=== PATIENT | female | born 1965 | race Caucasian/White ===

== ENCOUNTER 2023-10-10 10:11 | Emergency (ER) | payer OTHER ==
[~2023-10-10] VITALS: Ht 180.3 cm; Wt 115.7 kg
[2023-10-10] MEDS ORDERED: NEURONTIN300 MG (10:19)
[2023-10-10] MEDS ORDERED: CLARITIN10 M1 (10:19)
[2023-10-10] MEDS ORDERED: AMITRIPTYLINE H50 MG (10:19)
[2023-10-10] MEDS ORDERED: LIPITOR40 M1 (10:20)
[2023-10-10 11:21] LABS: HEMATOCRIT 42.3 % (36.0-45.00); HEMOGLOBIN 14.6 g/dL (12.0-15.00); MEAN CORPUSCULAR HEMOGLOBIN 32.7 pg (27.00-32.0); MEAN CORPUSCULAR HGB CONC 34.4 g/dl (32.0-36.0); PLATELET COUNT 263 K/uL (150-450); RED BLOOD COUNT 4.45 M/uL (4.00-6.00); RED CELL DISTRIBUTION WIDTH 13.4 % (11.5-14.5)
== END 2023-10-10 12:45 | disposition left against medical advice (07) ==
LOC: ER 10:11
PROVIDERS: General Practice
DX: R05.8 Other specified cough (principal); Z88.8 Allergy status to other drugs, medicaments and biological substances; Z20.822 Contact with and (suspected) exposure to COVID-19
CPT/HCPCS: 36415; 96372; 99284; J1100; J1885

== ENCOUNTER → 2024-06-13 | Outpatient (CLI) | payer OTHER ==
[~2024-06-13] MED LIST: AMITRIPTYLINE H50 MG; CLARITIN10 M1; LIPITOR40 M1; NEURONTIN300 MG
== END | disposition home or self-care (01) ==
LOC: NUCLEAR 06-06 13:15
PROVIDERS: ATTEND Obstetrics & Gynecology
DX: M81.0 Age-related osteoporosis without current pathological fracture (principal)

== ENCOUNTER 2024-06-20 09:53 | Outpatient (CLI) | payer OTHER | END 2024-06-20 10:00 | disposition home or self-care (01) | LOC: MAMO-SONO 09:53 | PROVIDERS: ATTEND Obstetrics & Gynecology | DX: R10.2 Pelvic and perineal pain (principal); N60.11 Diffuse cystic mastopathy of right breast; N60.12 Diffuse cystic mastopathy of left breast; Z12.31 Encounter for screening mammogram for malignant neoplasm of breast ==

== ENCOUNTER 2025-01-23 06:42 | Day surgery (SDC) | payer OTHER ==
[2025-01-23] MEDS ORDERED: fentaNYL CITRATE 50 MCG/ML AMPUL IV PUSH ONE (10:15)
[2025-01-23] MEDS ORDERED: ONDANSETRON HCL 2 MG/ML VIAL IV ONE (10:15)
[2025-01-23] MEDS ORDERED: DIPHENHYDRAMINE HCL 50 MG/ML VIAL 1ML IV ONE (10:15)
[2025-01-23] MEDS ORDERED: MIDAZOLAM HCL 2 MG/2 ML VIAL IV ONE (10:15)
== END 2025-01-23 11:15 | disposition home or self-care (01) ==
LOC: AMB-ENDOS 06:42
PROVIDERS: ATTEND Colon & Rectal Surgery
DX: D12.3 Benign neoplasm of transverse colon (principal); D12.2 Benign neoplasm of ascending colon; D12.4 Benign neoplasm of descending colon; K63.5 Polyp of colon; K57.30 Diverticulosis of large intestine without perforation or abscess without bleeding; Z88.5 Allergy status to narcotic agent; R19.4 Change in bowel habit